=== PATIENT | female | born 1960 | race Caucasian/White ===

== ENCOUNTER → 2017-11-28 | Outpatient (CLI) | payer OTHER ==
[~2017-11-28] MED LIST: FLEXERIL10 MG PO; NO HOME MEDICATIONS; PERCOCET 5/321 UDTAB PO; VALIUM 5MG T5 MG/TAB PO; ZITHROMAX TRI-500 MG PO
[2017-11-28 12:46] LABS: COLLECTION METHOD CLEAN CATCH
[2017-11-28 12:57] LABS: BASO % 0.2 % (0.0-2.0); GRAN # 3.7 (1.4-6.5); GRAN % 68.1 % (42.2-75.2); HEMATOCRIT 39.7 % (37.0-47.0); HEMOGLOBIN 13.6 g/dl (12.5-16.0); LYMPH # 1.4 (1.2-3.4); MEAN CELL VOLUME 93 fl (80.0-100.0); MEAN CORPUSCULAR HEMOGLOBIN 32 pg (27.0-31.0); MEAN CORPUSCULAR HGB CONC 34 g/dl (33.0-37.0); MEAN PLATELET VOLUME 9.1 fl (7.4-10.4); MONO # 0.4 (0.1-0.6); MONO % 6.5 % (1.7-9.3); PLATELET COUNT 204 K/mm3 (130-400); RED BLOOD COUNT 4.27 M/mm3 (4.10-5.30); REDCELL DISTRIBUTION WIDTH-CV 11.9 % (11.5-14.5)
[2017-11-28 12:59] LABS: PH 7 (5-8); SQUAMOUS EPITHELIAL 0-2 /hpf; URINE APPEARANCE Clear; URINE BACTERIA None Seen /hpf; URINE BILIRUBIN Negative (NEGATIVE); URINE BLOOD Negative (NEGATIVE); URINE COLOR Straw; URINE GLUCOSE Negative (NEGATIVE); URINE KETONE Negative (NEGATIVE); URINE LEUKOCYTE ESTERASE Negative (NEGATIVE); URINE NITRATE Negative (NEGATIVE); URINE PROTEIN(semi-quant) Negative (NEGATIVE); URINE RBC 0-2 /hpf; URINE UROBILINOGEN Negative (NEGATIVE); URINE WBC 0-2 /hpf
[2017-11-28 13:01] LABS: ALBUMIN 4.4 gm/dL (3.5-5.0); BILIRUBIN,TOTAL 0.7 mg/dL (0.0-1.0); CALCIUM 8.9 mg/dL (8.4-10.2); CHOLESTEROL RISK RATIO 1.8; CREATININE, serum 0.65 mg/dL (0.52-1.25); POTASSIUM 3.7 mmol/L (3.4-5.0); TOTAL PROTEIN 7.7 gm/dL (6.4-8.2)
[2017-11-28 13:31] LABS: THYROID STIMULATING HORMONE 1.43 uIU/mL (0.465-4.680)
== END ==
LOC: COL.LAB 11:58
DX: Z01.89 Encounter for other specified special examinations (principal)

== ENCOUNTER 2018-01-03 08:15 | Day surgery (SDC) | payer OTHER ==
[~2018-01-03] VITALS: Ht 165.1 cm; Wt 66.0 kg
[2018-01-03 08:36] VITALS: BP 119/75; PULSE 78; TEMP 98.5
[2018-01-03 10:25] VITALS: BP 114/62; PULSE 77; TEMP 97.3
[2018-01-03 10:40] VITALS: BP 114/73; PULSE 76
[2018-01-03 10:55] VITALS: BP 127/75; PULSE 65
[2018-01-03 11:10] VITALS: BP 128/68; PULSE 72
== END 2018-01-03 11:20 | disposition home or self-care (01) ==
LOC: SDCO 08:15
DX: Z12.11 Encounter for screening for malignant neoplasm of colon (principal); K57.30 Diverticulosis of large intestine without perforation or abscess without bleeding; K64.0 First degree hemorrhoids; K63.89 Other specified diseases of intestine; Z88.5 Allergy status to narcotic agent
CPT/HCPCS: OP; J2250; J3010; J7030

== ENCOUNTER → 2018-04-18 | Outpatient (CLI) | payer OTHER ==
[2018-04-18 16:23] LABS: HEMATOCRIT 35.5 % (37.0-47.0); HEMOGLOBIN 12.6 g/dl (12.5-16.0); MEAN CELL VOLUME 90 fl (80.0-100.0); MEAN CORPUSCULAR HEMOGLOBIN 32 pg (27.0-31.0); MEAN CORPUSCULAR HGB CONC 36 g/dl (33.0-37.0); MEAN PLATELET VOLUME 8.8 fl (7.4-10.4); PLATELET COUNT 193 K/mm3 (130-400); RED BLOOD COUNT 3.93 M/mm3 (4.10-5.30); REDCELL DISTRIBUTION WIDTH-CV 11.6 % (11.5-14.5)
[2018-04-18 16:42] LABS: ERYTHROCYTE SEDIMENTATION RATE 4 mm/hr (0-30)
== END ==
LOC: COL.RAD 15:31
PROVIDERS: Pediatrics Adolescent Medicine
DX: M18.12 Unilateral primary osteoarthritis of first carpometacarpal joint, left hand (principal); M19.032 Primary osteoarthritis, left wrist

== ENCOUNTER 2023-08-12 05:36 | Emergency (ER) | payer SELFPAY ==
[~2023-08-12] VITALS: Ht 165.1 cm; Wt 65.9 kg
[2023-08-12 05:42] VITALS: BP 149/108; TEMP 98.2
[2023-08-12] MEDS ORDERED: TESSALON P100 MG/CAP PO (06:59)
[2023-08-12 07:08] VITALS: PULSE 93
== END 2023-08-12 07:08 | disposition home or self-care (01) ==
LOC: COL.ER 05:36
DX: J06.9 Acute upper respiratory infection, unspecified (principal)
CPT/HCPCS: J1100